=== PATIENT | male | born 1990 | race Caucasian/White ===

== ENCOUNTER 2024-06-01 14:56 | Outpatient (CLI) | payer BC, SELFPAY ==
[2024-06-01 15:48] LABS: Hematocrit 46.9 % (37-53)
[2024-06-01 16:20] LABS: Prostate Specific Antigen Scr 0.67 ng/mL (0-4)
[2024-06-01 16:30] LABS: HCG Quantitative < 1.00 mIU/mL
[2024-06-01 17:59] LABS: Estradiol 15.6 pg/mL (7.63-42.6)
== END 2024-06-01 14:57 | disposition home or self-care (01) ==
LOC: LAB 15:05
PROVIDERS: Visit Provider Nurse Practitioner Family
DX: E29.1 Testicular hypofunction (principal); R79.89 Other specified abnormal findings of blood chemistry; Z79.890 Hormone replacement therapy
CPT/HCPCS: 36415; 82670; 84403; 84702; 85014; G0103

== ENCOUNTER 2024-12-17 13:57 | Outpatient (CLI) | payer BC, SELFPAY ==
[2024-12-17 14:21] LABS: Hematocrit 46.1 % (37-53); Hemoglobin 15.90 g/dL (11.27-16.99); Mean Corpuscular HGB Conc 34.5 g/dL (30-55); Mean Corpuscular Hemoglobin 29.7 pg (27-33); Mean Corpuscular Volume 86.2 fl (82-101); Nucleated Red Blood Cells % 0 %; Platelet Count 234 10^3/cmm (157-399); Red Blood Count 5.35 10^6/uL (3.85-5.65); White Blood Count 6.36 10^3/uL (3.29-11.43)
[2024-12-17 15:04] LABS: Alanine Aminotransferase 19 U/L (0-41); Albumin Level 4.6 g/dL (3.5-5.2); Alkaline Phosphatase 83 U/L (40-130); Aspartate Amino Transferase 17 U/L (0-40); Globulin 2.3 g/dL (1.3-4.6); Total Protein 6.9 g/dL (6.6-8.7)
== END 2024-12-17 13:58 | disposition home or self-care (01) ==
PROVIDERS: PCP Nurse Practitioner; Visit Provider Nurse Practitioner Family
DX: E29.1 Testicular hypofunction (principal)
CPT/HCPCS: 36415; 80076; 82533; 82670; 84402; 84403; 85025